=== PATIENT | male | born 1955 | race Caucasian/White ===

== ENCOUNTER 2018-06-13 11:31 | Inpatient (IN) | payer BC ==
[2018-06-13 12:29] LABS: #Monocytes 0.5 thou/uL (0.11-0.59); #Neutrophils 9.7 thou/uL (1.40-6.50); %Basophils 0.3 % (0.0-1.0); %Eosinophils 0.4 % (0.0-10.0); %Lymphocytes 8.8 % (21.0-51.0); %Monocytes 4.6 % (0.0-10.0); Hemoglobin 13.6 g/dL (14.0-18.0); Mean Corpuscular HGB CONC 33.1 g/dL (32.0-36.0); Mean Corpuscular Hemoglobin 32.3 pg (27.0-31.0); Mean Corpuscular Volume 97.6 fL (78.0-98.0); Mean Platelet Volume 8.4 fL (7.4-10.4); Platelet Count 185 thou/uL (130-400); RBC Distribution Width 12.1 % (11.5-14.5); White Blood Cell (WBC) Count 11.2 thou/uL (4.8-10.8)
[2018-06-13 12:35] LABS: PTT 24.9 SEC (22.9-36.1)
[2018-06-13 12:51] LABS: ALT (SGPT) 24 U/L (8-55); AST (SGOT) 18 U/L (5-34); Albumin 3.9 g/dL (3.4-4.8); Alkaline Phosphatase 71 U/L (40-150); Anion Gap 14 mmol/L (10-20); BUN (Urea Nitrogen) 57 mg/dL (8.4-25.7); Bilirubin, Total 0.7 mg/dL (0.2-1.2); Calc. Creatinine Clearance 0 mL/min (70-130); Calcium 10.3 mg/dL (7.8-10.44); Carbon Dioxide 21 mmol/L (23-31); Chloride 106 mmol/L (98-107); Estimated GFR-MDRD 66; Globulin 2.8 g/dL (2.4-3.5); Glucose 151 mg/dL (80-115); Potassium 4.5 mmol/L (3.5-5.1); Protein, Total 6.7 g/dL (5.8-8.1); Sodium 136 mmol/L (136-145)
[2018-06-13 12:55] LABS: CKMB 1.1 ng/mL (0-6.6); Troponin I 0.014 ng/mL (< 0.028)
--- NOTE | 2018-06-13 13:08 | RAD ---
PORTABLE CHEST: Date: 06/13/18 PROVIDED CLINICAL HISTORY: Syncope. FINDINGS: Cardiac and mediastinal silhouette is within normal limits. Lungs appear clear. No pleural fluid or p neumothorax apparent. IMPRESSION: No evidence for an acute cardiopulmonary process. POS: [facility]
[2018-06-13 13:54] LABS: Bilirubin Negative (Negative); Blood, Urine Negative (Negative); Clarity CLEAR (Clear); Glucose, Urine (Dipstick) Negative (Negative); Leukocyte Negative (Negative); Nitrite Negative (Negative); Protein, Urine (Dipstick) Negative (Neg-Trace); Specific Gravity, Urine 1.021 (1.002-1.036); Urobilinogen 0.2 mg/dL (0.2-1.0)
[2018-06-13] MEDS ORDERED: Acetaminophen 325 MG TAB PO PRN (15:09)
[2018-06-13] MEDS ORDERED: Ondansetron PF 4 MG/2 ML Vial IVP PRN (15:09)
[2018-06-13] MEDS ORDERED: Sodium Chloride 0.9% 1,000 ML IV SCH (15:09)
[2018-06-13] MEDS ORDERED: Ondansetron ODT 4 MG TAB SL PRN (15:09)
[2018-06-13 16:26] VITALS: BMI 31.1
[2018-06-13] MEDS: Sodium Chloride 0.9% 1,000 ML IV SCH (17:00)
--- NOTE | 2018-06-13 17:47 | HP ---
CHIEF COMPLAINT: Near syncope. HISTORY OF PRESENT ILLNESS: Patient is a 63-year-old male who presented via the emergency department. The patient has had several episodes over several days of dark stools turning the toilet water black with a tinge of red and loose stools. The patient had an episode this morning around 4:00, which was similar and the stool in same character. Subsequent to that, he got up, took a shower and then had another bowel movement similar to that. Subsequent to that , he was getting up going to his kitchen when he felt some lightheadedness and felt near syncopal. He subsequently presented via the emergency department. The patient has had no head trauma or loss of consciousness. He had no specific vertigo, or denied scotomas or vision loss. No numbness, weakness or tingling. He denied any specific abdominal pain, odynophagia or dysphagia. He has had some mild upper respiratory tract infection type symptoms. REVIEW OF SYSTEMS: Only notable for some mild weight gain, intermittent constipation and diarrhea. He has had some cough and mild anxiety and depression. Otherwise, 10 system review was negative except for those things mentioned in history of present illness. Specifically, the patient denied any hematemesis, steatorrhea or substantial true fevers or chills. PAST MEDICAL HISTORY: Notable for reflux a of couple times a week. He has a history of a hiatal hernia diagnosed on prior endoscopies remotely. He has nephrolithiasis, anxiety, depression, hyperlipidemia, and PVCs. 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 He has had colonoscopy and EGD x2 remotely. FAMILY HISTORY: Reviewed, no significant medical issues. SOCIAL HISTORY: The patient has 3-4 drinks per week. Denies tobacco. Denies drugs. He is . He is FULL [employer] and his surrogate decision maker would be his sister Alivia. ALLERGIES: None. CURRENT MEDICATIONS: Vitamin D3 1000 units every day, vitamin C 1000 units every day, aspirin 81 mg every day, diltiazem 180 mg at bedtime, Bupropion 300 mg every day, potassium 15 mEq every day, mirtazapine 30 mg p.o. at bedtime, atorvastatin 10 mg at bedtime. PHYSICAL EXAMINATION: VITAL SIGNS: Temperature is 98.7, pulse 94, respirations 16, O2 sat 93% on room air, BP 131/73 supine, 124/66 sitting, and 120/64 standing. GENERAL APPEARANCE: Age appropriate male in no distress. He is awake, alert, oriented, pleasant, cooperative. HEENT: PERRL. No OP lesions. NECK: Supple and symmetric without lymphadenopathy, JVD or bruits. CARDIOVASCULAR: Regular rate and rhythm without murmurs, gallops or rubs. CHEST: Lungs are clear to auscultation bilaterally with good chest wall expansion and air exchange. ABDOMEN: Soft, nontender, nondistended, positive bowel sounds. No masses, no organomegaly. EXTREMITIES: Warm and dry without edema. LABORATORY DATA: White count is 11.2, hemoglobin 13.6, and platelets 185. Coags are normal. Chemistries: CO2 is 21, BUN 57 and creatinine 1.12, and glucose 151. Urinalysis is negative. Chest x-ray is negative. EKG shows some sinus tachycardia at 104 with some left anterior fascicular block. IMPRESSION AND PLAN: 1. Near syncopal episode appears to be possibly some vagal response to some GI bleeding. The patient will be placed in observation, started on telemetry. We will get serial troponins. 2. Upper GI bleed. The patient takes aspirin for general purposes. He has no specific indication for being on aspirin. He does have a history of hiatal hernia, increasing risk for Peter's erosions and his counts appear to be stable at the moment. We will continue to follow those. Consult GI. Discussed with Dr. Clay. We will anticipate upper endoscopy in the morning. We will keep him on clear liquids and make him n.p.o. after midnight. In the meantime, we will hold his aspirin. 3. History of premature ventricular contractions. Continue with his Cardizem. 4. History of anxiety and depression. Continue with the Remeron and Wellbutrin. MTDD
[2018-06-13 18:37] LABS: Troponin I 0.029 ng/mL (< 0.028)
--- NOTE | 2018-06-13 19:15 | CON ---
DATE OF CONSULTATION: 06/13/2018 HISTORY OF PRESENT ILLNESS: The patient is a 63-year-old male who was in his normal state of health until last night when he had acute onset diarrhea in the middle of the middle of the night. He went to the bathroom, had to get up soon thereafter and go again. He notes that the stool was b lack in color. When he flushed it, there was some red tint to the water. He had some more bleeding this morning. He was up and walking and had a near syncopal episode. He did not injure himself. He has never had GI bleeding before. He had no nausea or vomiting. He has had no weight loss. He den ies any NSAID use, although he takes one baby aspirin per day. PAST MEDICAL HISTORY: Significant for gastroesophageal reflux, hyperlipidemia, PVCs, anxiety. PAST SURGICAL HISTORY: Includes herniorrhaphy. ALLERGIES: No known allergies. MEDICATIONS: Include atorvastatin 10 mg p.o. daily, mirtazapine 30 mg p.o. daily, diltiazem 180 mg 1 p.o. daily, aspirin 81 mg p.o. daily, potassium citrate 15 mEq p.o. daily. SOCIAL HISTORY: Drinks some wine occasionally. Does not smoke. FAMILY HISTORY: Negative for GI or liver disease. REVIEW OF SYSTEMS: Constitutional: fever or chills, no weight loss. EYES: No blurred vision or double vision. ENT: No sore throat or earaches. Cardiovascular: No chest pain or palpitations . Pulmonary: No shortness of breath, cough or wheezing. Gastrointestinal: See above. Genitourina ry: No hematuria or dysuria. Musculoskeletal: No joint pain. Skin: No rashes month. Neurologic: No numbness or seizure activity. PHYSICAL EXAMINATION: GENERAL: Shows a pale white male in no acute distress. VITAL SIGNS: Temperature 98.7, pulse 94, respiratory rate 12, blood pressure 124/66. HEENT: Unremarkable. NECK: Supple. CHEST: Clear. CARDIOVASCULAR: Regular rate and rhythm without murmurs or gallop. ABDOMEN: Soft, nontender, without organomegaly or masses. Bowel sounds are present and normoactive. RECTAL: Deferred. EXTREMITIES: Normal. NEUROLOGIC: Nonfocal. Reviewing previous EGD and colonoscopy results, the patient had an EGD back in 08/2011 that showed er osive gastritis. Colonoscopy on the same day was normal. Biopsies for Helicobacter pylori in 2012 w ere negative. Laboratory here shows a white blood cell count of 11.2, hemoglobin 13.6. PT is 13.0 with an INR of 1 .0. Chemistries show a CO2 of 21, BUN 57, glucose 151. ASSESSMENT: 1. Upper gastrointestinal bleed. 2. Gastroesophageal reflux. 3. Near syncopal episode. RECOMMENDATIONS: 1. PPI. 2. EGD. 3. Serial H&H.
[2018-06-13] MEDS: Atorvastatin Calcium 10 MG TAB PO SCH (20:04)
[2018-06-13] MEDS: Pantoprazole 40 MG VIAL IVP SCH (20:05)
[2018-06-13] MEDS: Mirtazapine 30 MG TAB PO SCH (20:05)
[2018-06-13 21:34] LABS: Troponin I 0.028 ng/mL (< 0.028)
[2018-06-14 05:53] LABS: #Basophils 0.1 thou/uL (0.0-0.2); #Eosinphils 0.2 thou/uL (0.0-0.7); #Lymphocytes 3.3 thou/uL (1.20-3.40); #Monocytes 0.9 thou/uL (0.11-0.59); #Neutrophils 4.2 thou/uL (1.40-6.50); %Basophils 0.7 % (0.0-1.0); %Eosinophils 2.7 % (0.0-10.0); %Monocytes 9.9 % (0.0-10.0); %Neutrophils 48.7 % (42.0-75.0); Hemoglobin 10.6 g/dL (14.0-18.0); Mean Corpuscular HGB CONC 33.2 g/dL (32.0-36.0); Mean Corpuscular Hemoglobin 32.4 pg (27.0-31.0); Mean Corpuscular Volume 97.7 fL (78.0-98.0); Mean Platelet Volume 7.5 fL (7.4-10.4); Platelet Count 158 thou/uL (130-400); Red Blood Cell (RBC) Count 3.25 mill/uL (4.70-6.10); White Blood Cell (WBC) Count 8.6 thou/uL (4.8-10.8)
[2018-06-14] MEDS: Sodium Chloride 0.9% 1,000 ML IV SCH ×2 (06:16→22:08)
[2018-06-14] MEDS ORDERED: Ascorbic Acid 500 mg Chewable Tablet PO SCH (09:00)
[2018-06-14] MEDS ORDERED: Fentanyl 100 MCG/2 ML VIAL ONE (10:04)
[2018-06-14] MEDS: Pantoprazole 40 MG VIAL IVP SCH ×2 (10:40→22:09)
[2018-06-14 11:11] LABS: Hemoglobin 10.5 g/dL (14.0-18.0)
--- NOTE | 2018-06-14 11:40 | OP ---
PREOPERATIVE DIAGNOSIS: Gastrointestinal bleed. PROCEDURE: After informed consent was obtained, the patient was placed in the left lateral decubitus position. Anesthesia was administered per the Anesthesia Department. Forward-viewing endoscope was inserted into the esophagus under direct visualization with ease and passed into the gastric lumen. There no blood was seen. The pylorus was normal. In the duodenal bulb and second portion of the du odenum was a large amount of blood. She has difficulty locating this bleeding site, but it was at th e junction of the first and second portion of the duodenum. It was actively arterial bleed and once located it was then injected in a 4-quadrant fashion with epinephrine. This did not stem the blood f low and a 10-Lao BICAP electrocautery probe was used to eventually cauterize the ulcer and achieve hemostasis. The remainder of the duodenal bulb was normal. ASSESSMENT: Actively bleeding duodenal ulcer - status post sclerotherapy and BICAP electrocautery. RECOMMENDATIONS: 1. Change admission status to full admission. 2. PPI. 3. Serial H and H. 4. Patient will need to be at least hospitalized another 24-48 hours to observe for re-bleeding.
[2018-06-14] MEDS: Potassium Citrate 10 MEQ TAB PO SCH (12:00)
[2018-06-14] MEDS: Bupropion 150 MG XL TAB PO SCH (12:00)
--- NOTE | 2018-06-14 13:30 | PDOC.PN ---
- Subjective Encounter Start Date: 06/14/18 Encounter Start Time: 13:30 -: f/u for upper GI bleed. Patient was taken for EGD this morning - Objective Vital Signs & Weight: Vital Signs (12 hours) Temp Pulse Resp BP BP BP Pulse Ox 06/14/18 10:21 99.2 F 89 20 127/70 91 L 06/14/18 07:27 97.8 F 94 18 128/64 95 06/14/18 03:56 97.5 F L 82 18 129/72 94 L Weight Weight 92.896 kg I&O: 06/13/18 06/14/18 06/15/18 06:59 06:59 06:59 Intake Total 1972 Output Total 1325 Balance 648 Result Diagrams: 06/14/18 13:36 06/13/18 12:07 <Dayan Parnell - Last Filed: 06/14/18 14:38> - Objective Vital Signs & Weight: Vital Signs (12 hours) Temp Pulse Resp BP Pulse Ox 06/15/18 07:00 98.1 F 86 18 123/78 94 L 06/15/18 03:00 98.1 F 78 16 112/71 93 L 06/14/18 23:00 98.1 F 83 16 126/71 92 L Weight Weight 204 lb 12.8 oz I&O: 06/14/18 06/15/18 06/16/18 06:59 06:59 06:59 Intake Total 1972 Output Total 1325 425 Balance 648 -425 Result Diagrams: 06/15/18 04:29 06/15/18 04:29 <Gagandeep Maloney - Last Filed: 06/15/18 08:00> Phys Exam - Physical Examination HEENT: PERRLA, moist MMs, sclera anicteric Neck: no nodes, no JVD Respiratory: no wheezing, no rales, clear to auscultation bilateral Cardiovascular: RRR, no significant murmur Gastrointestinal: soft, non-tender, positive bowel sounds Musculoskeletal: no edema, pulses present Neurological: non-focal, normal sensation Lymphatic: no nodes Psychiatric: normal affect, A&O x 3 Skin: no rash, normal turgor <Dayan Parnell - Last Filed: 06/14/18 14:38> Dx/Plan (1) Upper GI bleeding Code(s): K92.2 - GASTROINTESTINAL HEMORRHAGE, UNSPECIFIED Status: Acute (2) Tachycardia Code(s): R00.0 - TACHYCARDIA, UNSPECIFIED Status: Resolved - Plan -: Patient with upper GI bleed - taken for EGD this morning, -: Will be converted to inpatient to monitor and do serial H&H -: Patient's HR in the 80's after procedure. * . <Dayan Parnell - Last Filed: 06/14/18 14:38> - Plan * . <Gagandeep Maloney - Last Filed: 06/15/18 08:00>
[2018-06-14 13:49] LABS: Hemoglobin 9.9 g/dL (14.0-18.0)
[2018-06-14] MEDS ORDERED: PROPOFOL 200 MG/20 ML VIAL ONE (13:58)
[2018-06-14] MEDS: Mirtazapine 30 MG TAB PO SCH (22:09)
[2018-06-14] MEDS: Atorvastatin Calcium 10 MG TAB PO SCH (22:09)
[2018-06-15 05:25] LABS: #Basophils 0.1 thou/uL (0.0-0.2); #Eosinphils 0.3 thou/uL (0.0-0.7); #Lymphocytes 3.5 thou/uL (1.20-3.40); #Monocytes 0.7 thou/uL (0.11-0.59); #Neutrophils 4.4 thou/uL (1.40-6.50); %Basophils 0.7 % (0.0-1.0); %Eosinophils 3.6 % (0.0-10.0); %Monocytes 7.6 % (0.0-10.0); %Neutrophils 49.3 % (42.0-75.0); Hemoglobin 9.1 g/dL (14.0-18.0); Mean Corpuscular HGB CONC 33.9 g/dL (32.0-36.0); Mean Corpuscular Volume 97.4 fL (78.0-98.0); Mean Platelet Volume 8.2 fL (7.4-10.4); Platelet Count 155 thou/uL (130-400); RBC Distribution Width 11.9 % (11.5-14.5); Red Blood Cell (RBC) Count 2.76 mill/uL (4.70-6.10)
[2018-06-15 06:02] LABS: ALT (SGPT) 23 U/L (8-55); AST (SGOT) 22 U/L (5-34); Albumin 2.9 g/dL (3.4-4.8); Alkaline Phosphatase 47 U/L (40-150); Anion Gap 5 mmol/L (10-20); BUN (Urea Nitrogen) 23 mg/dL (8.4-25.7); Bilirubin, Total 0.6 mg/dL (0.2-1.2); Calc. Creatinine Clearance 96 mL/min (70-130); Calcium 8.1 mg/dL (7.8-10.44); Carbon Dioxide 28 mmol/L (23-31); Chloride 109 mmol/L (98-107); Estimated GFR-MDRD 74; Globulin 2.1 g/dL (2.4-3.5); Glucose 90 mg/dL (80-115); Potassium 3.3 mmol/L (3.5-5.1); Sodium 139 mmol/L (136-145)
[2018-06-15] MEDS: Pantoprazole 40 MG VIAL IVP SCH ×2 (07:34→21:43)
[2018-06-15] MEDS: Sodium Chloride 0.9% 1,000 ML IV SCH (07:34)
[2018-06-15] MEDS: Bupropion 150 MG XL TAB PO SCH (07:34)
[2018-06-15] MEDS: Potassium Citrate 10 MEQ TAB PO SCH (07:34)
--- NOTE | 2018-06-15 11:09 | PRG ---
DATE OF SERVICE: 06/15/2018 SUBJECTIVE: The patient has had no further bleeding. No red or black bowel movements. He has had n o abdominal pain, no nausea or vomiting. OBJECTIVE: VITAL SIGNS: Temperature 98.1, pulse 86, respiratory rate 18, blood pressure 123/78. CHEST: Clear. CARDIOVASCULAR: Regular rate and rhythm. ABDOMEN: Soft, nontender, without organomegaly or masses. LABORATORY DATA: Shows hemoglobin of 9.1, hematocrit 26.8. ASSESSMENT: 1. Upper gastrointestinal bleed. 2. Duodenal ulcer. 3. Anemia secondary to gastrointestinal blood loss. RECOMMENDATIONS: 1. Continue proton pump inhibitor. 2. Stable from GI standpoint if H&H is stable in the morning.
[2018-06-15] MEDS: Atorvastatin Calcium 10 MG TAB PO SCH (21:42)
[2018-06-15] MEDS: Mirtazapine 30 MG TAB PO SCH (21:42)
--- NOTE | 2018-06-15 23:30 | PDOC.PN ---
- Subjective Encounter Start Date: 06/15/18 Encounter Start Time: 18:00 Subjective: nsg notes rev, nanda ovn, pt no c/o, understands the overall plan of care. 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, grading papers HEENT: PERRLA, moist MMs Respiratory: no wheezing, no rales, no rhonchi, clear to auscultation bilateral Cardiovascular: RRR Gastrointestinal: soft, positive bowel sounds Neurological: moves all 4 limbs Psychiatric: normal affect, A&O x 3 Dx/Plan - Plan * acute GIB, duodenal ulcer * resolved, s/p EGD * apprec GI c/s * continue with PPI - protonix 40mg IV BID * re-check H/H in AM if stable, possible D/C * * diet: as per GI recommendation * activity: as tolerated * dvt ppx * * d/w pt at bedside Review of Systems - Medications/Allergies Allergies/Adverse Reactions: Allergies Allergy/AdvReac Type Severity Reaction Status Date / Time No Known Drug Allergies Allergy Verified 06/13/18 15:34 Medications: Current Medications Atorvastatin Calcium (Lipitor) 10 mg PO HS [facility] Last Admin: 06/15/18 21:42 Dose: 10 mg Bupropion HCl (Wellbutrin Xl) 300 mg PO DAILY [facility] Last Admin: 06/15/18 07:34 Dose: 300 mg Cholecalciferol (Vitamin D3) 1,000 units PO DAILY [facility] Last Admin: 06/15/18 07:34 Dose: 1,000 units Diltiazem HCl (Cardizem Cd) 180 mg PO HS [facility] Last Admin: 06/15/18 21:42 Dose: 180 mg Sodium Chloride (Normal Saline 0.9%) 1,000 mls @ 75 mls/hr IV .[id number] [facility] Last Admin: 06/15/18 07:34 Dose: 1,000 mls Mirtazapine (Remeron) 30 mg PO HS [facility] Last Admin: 06/15/18 21:42 Dose: 30 mg Pantoprazole Sodium (Protonix) 40 mg IVP Q12HR [facility] Last Admin: 06/15/18 21:43 Dose: 40 mg Potassium Citrate (Urocit K) 15 meq PO DAILY [facility] Last Admin: 06/15/18 07:34 Dose: 15 meq
[2018-06-16] MEDS: Sodium Chloride 0.9% 1,000 ML IV SCH ×2 (01:15→12:16)
[2018-06-16 04:57] LABS: #Eosinphils 0.4 thou/uL (0.0-0.7); #Lymphocytes 3.2 thou/uL (1.20-3.40); #Monocytes 0.6 thou/uL (0.11-0.59); #Neutrophils 3.4 thou/uL (1.40-6.50); %Basophils 0.3 % (0.0-1.0); %Eosinophils 5.8 % (0.0-10.0); %Lymphocytes 42.3 % (21.0-51.0); %Monocytes 7.8 % (0.0-10.0); %Neutrophils 43.9 % (42.0-75.0); Hemoglobin 9.1 g/dL (14.0-18.0); Mean Corpuscular HGB CONC 33.5 g/dL (32.0-36.0); Mean Corpuscular Hemoglobin 32.7 pg (27.0-31.0); Mean Corpuscular Volume 97.6 fL (78.0-98.0); Mean Platelet Volume 8.1 fL (7.4-10.4); Platelet Count 178 thou/uL (130-400); RBC Distribution Width 12.1 % (11.5-14.5); Red Blood Cell (RBC) Count 2.79 mill/uL (4.70-6.10); White Blood Cell (WBC) Count 7.7 thou/uL (4.8-10.8)
[2018-06-16 05:33] LABS: ALT (SGPT) 27 U/L (8-55); AST (SGOT) 25 U/L (5-34); Albumin 3.1 g/dL (3.4-4.8); Alkaline Phosphatase 52 U/L (40-150); Anion Gap 9 mmol/L (10-20); BUN (Urea Nitrogen) 18 mg/dL (8.4-25.7); Bilirubin, Total 0.3 mg/dL (0.2-1.2); Calc. Creatinine Clearance 88 mL/min (70-130); Calcium 8.5 mg/dL (7.8-10.44); Carbon Dioxide 27 mmol/L (23-31); Chloride 110 mmol/L (98-107); Estimated GFR-MDRD 66; Globulin 2.2 g/dL (2.4-3.5); Glucose 93 mg/dL (80-115); Potassium 3.5 mmol/L (3.5-5.1); Protein, Total 5.3 g/dL (5.8-8.1); Sodium 142 mmol/L (136-145)
[2018-06-16 07:31] VITALS: BP 136/86; TEMP 98.4
[2018-06-16] MEDS: Bupropion 150 MG XL TAB PO SCH (08:40)
[2018-06-16] MEDS: Pantoprazole 40 MG VIAL IVP SCH (08:40)
[2018-06-16] MEDS: Potassium Citrate 10 MEQ TAB PO SCH (10:16)
--- NOTE | 2018-06-17 11:58 | PQF ---
MEL LINDA PERKINS [id number] CLINICAL DOCUMENTATION IMPROVEMENT CLARIFICATION FORM: ICD-10 Updated PLEASE DO AN ADDENDUM TO THE PROGRESS NOTE WITH ANY DOCUMENTATION UPDATES OR ADDITIONS AND CARRY THROUGH TO DC SUMMARY. THANK YOU. DATE: 06-17-18 ATTN: DR. MOROCHO Please exercise your independent, professional judgment in responding to the clarification form. Clinical indicators are provided on the bottom of this form for your review Please check appropriate box(s): [ x ] Acute blood loss anemia d/t GI Bleed [ ] Anemia: [ ] Aplastic [ ] Nutritional [ ] Other diagnosis [ ] Unable to determine In addition, please specify: Present on Admission (POA): [ x ] Yes [ ] No [ ] Unable to determine For continuity of documentation, please document condition throughout progress notes and discharge summary. Thank You. CLINICAL INDICATORS - SIGNS / SYMPTOMS / LABS 06-15 (Clay): ANEMIA SECONDARY TO GASTROINTESTINAL BLOOD LOSS LABS: Hgb Hct 06-13 12.0 35.8 06-14 9.9 29.3 06-15 9.1 26.8 RISK FACTORS 06-14 (Clay) OP NOTE: ACTIVELY BLEEDING DUODENAL ULCER TREATMENTS: 06-14 (Clay) OP NOTE: S/P SCLEROTHERAPY AND BICAP ELECTROCAUTERY OF ACTIVELY BLEEDING DUODENAL ULCER SERIAL H AND H CHANGE TO FULL ADMISSION THANK YOU, MARTHA (This form is maintained as a part of the permanent medical record) 2014 [employer]. All Rights Reserved Martha Gutierrez RN, BS [email or web address] [employer] [facility]
--- NOTE | 2018-06-20 23:07 | EKG ---
Test Reason : Blood Pressure : / mmHG Vent. Rate : 104 BPM Atrial Rate : 104 BPM P-R Int : 154 ms QRS Dur : 098 ms QT Int : 316 ms P-R-T Axes : 042 -51 042 degrees QTc Int : 415 ms Poor data quality, interpretation may be adversely affected Sinus tachycardia Left anterior fascicular block Abnormal ECG Confirmed by AKILAH DE LA CRUZ ([id number]), assistant editor ANSON PLAZA ([id number]) on 06/20/2018 11:06:53 PM Referred By: Confirmed By:AKILAH DE LA CRUZ
== END 2018-06-16 12:17 | disposition home or self-care (01) | DRG 378 ==
LOC: ERS 11:31 → OBSVTOIN 14:41 → 2SW 14:41 → T4-A 06-14 17:09
PROVIDERS: ADMIT Internal Medicine; ATTEND Internal Medicine
PROC: 0W3P8ZZ Control Bleeding in Gastrointestinal Tract, Via Natural or Artificial Opening Endoscopic (ICD-10-PCS; principal; 2018-06-14)
PROC: 3E0G8TZ Introduction of Destructive Agent into Upper GI, Via Natural or Artificial Opening Endoscopic (ICD-10-PCS; 2018-06-14)
DX: K26.4 Chronic or unspecified duodenal ulcer with hemorrhage (principal); D62 Acute posthemorrhagic anemia; K44.9 Diaphragmatic hernia without obstruction or gangrene; K21.9 Gastro-esophageal reflux disease without esophagitis; R55 Syncope and collapse; E78.5 Hyperlipidemia, unspecified; I49.3 Ventricular premature depolarization; R00.0 Tachycardia, unspecified; F41.8 Other specified anxiety disorders; Z79.82 Long term (current) use of aspirin; Z79.899 Other long term (current) drug therapy
CPT/HCPCS: 36415; 71045; 80053; 81003; 82274; 82553; 83605; 84484; 85025; 85610; 85730; 86677; 90471; 90686; 93005; 94760; 96360; C9113; G0008; J2704; J3010

== ENCOUNTER 2020-05-29 13:41 | Outpatient (CLI) | payer BC ==
--- NOTE | 2020-05-29 15:18 | CT ---
CT ABDOMEN AND PELVIS WITHOUT IV CONTRAST: Date: 05/29/2020 HISTORY: Calculus of kidney. Left side pain. Comparison made to CT abdomen and pelvis stone protocol from 2013. FINDINGS: Lung bases clear. There are numerous small hepatic cystic lesions. The largest in the left lobe of the liver measures a pproximately 1.7 cm. This small cyst has slightly enlarged since the prior study, but was present pre viously. The spleen and pancreas appear unremarkable. Adrenal glands normal. Review of kidneys showed numerous nonobstructing calculi in the upper collecting structures of both k idneys, similar to the prior exam. There are numerous bilateral parapelvic cysts which were also pres ent previously. There is a cortical cyst in the left kidney measuring 2.0 cm, which was present previ ously, but has enlarged. No significant hydronephrosis. However, there is inflammatory haziness surrounding the left renal pel vis with mild thickening of the wall of the left renal pelvis. The left ureter is normal caliber and there is no evidence of ureteral calculus. The urinary bladder is mildly distended without bladder wa ll thickening. Prostate is mildly enlarged. Small and large bowel loops unremarkable. Aorta normal caliber. There is anterior wedge compression of the L1 vertebra which is a stable finding when compared to 201 3. IMPRESSION: 1. Numerous nonobstructing calculi in the upper collecting structures of both kidneys. 2. Inflammatory haziness surrounds the left renal pelvis with mild fullness of the left renal pelvis . Pyelonephritis should be excluded. There is no evidence of ureteral calculus or obstruction. 3. Bilateral parapelvic cysts and a left renal cortical cyst as described above. 4. There are several small hepatic cysts as noted above. POS: OFF
== END 2020-05-29 13:42 | disposition home or self-care (01) ==
LOC: SCSCT 13:41
PROVIDERS: ATTEND Family Medicine
DX: N20.0 Calculus of kidney (principal); N28.89 Other specified disorders of kidney and ureter; N28.1 Cyst of kidney, acquired; K76.89 Other specified diseases of liver
CPT/HCPCS: 74176